=== PATIENT | female | born 1975 | race Hispanic/Latino ===

== ENCOUNTER 2017-11-23 22:40 | Emergency (ER) | payer OTHER, MEDICARE | END 2017-11-23 23:40 | disposition home or self-care (01) | LOC: EDH 22:40 | DX: S90.822A Blister (nonthermal), left foot, initial encounter (principal); X58.XXXA Exposure to other specified factors, initial encounter; Y93.89 Activity, other specified; Y92.89 Other specified places as the place of occurrence of the external cause; Y99.8 Other external cause status | CPT/HCPCS: 99282 ==

== ENCOUNTER → 2020-06-14 | Outpatient (CLI) | payer OTHER, MEDICARE | END | disposition home or self-care (01) | LOC: RAH 15:13 | PROVIDERS: ATTEND Internal Medicine | DX: I82.561 Chronic embolism and thrombosis of right calf muscular vein (principal) | CPT/HCPCS: 93970 ==

== ENCOUNTER → 2021-10-24 | Outpatient (CLI) | payer OTHER, MEDICARE | END | disposition home or self-care (01) | LOC: RAH 09:05 | PROVIDERS: ATTEND Internal Medicine | DX: M25.462 Effusion, left knee (principal); M25.562 Pain in left knee | CPT/HCPCS: 73560 ==

== ENCOUNTER → 2022-07-07 | Outpatient (CLI) | payer OTHER, MEDICARE | END | disposition home or self-care (01) | LOC: RAH 12:25 | PROVIDERS: ATTEND Internal Medicine | DX: M54.12 Radiculopathy, cervical region (principal); M25.78 Osteophyte, vertebrae | CPT/HCPCS: 72040 ==

== ENCOUNTER 2022-07-25 19:52 | Emergency (ER) | payer OTHER, MEDICARE ==
[~2022-07-25] VITALS: Ht 152.4 cm; Wt 62.6 kg
[2022-07-25 20:14] VITALS: BP 133/73
[2022-07-25] MEDS ORDERED: FLUORESCEIN SODIUM 1 STRIP STRIP ONE (23:07)
[2022-07-26] MEDS ORDERED: ERYTHROMYCIN BASE 0.5% OPHTH OINT 1 GM TUBE OU SCH
== END 2022-07-26 00:12 | disposition home or self-care (01) ==
LOC: EDH 19:52
DX: S05.02XA Injury of conjunctiva and corneal abrasion without foreign body, left eye, initial encounter (principal); Z98.890 Other specified postprocedural states; X58.XXXA Exposure to other specified factors, initial encounter; Y93.89 Activity, other specified; Y92.89 Other specified places as the place of occurrence of the external cause; Y99.8 Other external cause status

== ENCOUNTER 2023-03-26 15:12 | Emergency (ER) | payer OTHER, MEDICARE ==
[~2023-03-26] VITALS: Ht 152.4 cm; Wt 61.2 kg
[2023-03-26] MEDS ORDERED: MAG/ALUM/SIMETH 30 ML UDCUP PO ONE (17:30)
[2023-03-26] MEDS ORDERED: LIDOCAINE HCL 2% VISCOUS 15 ML UDCUP PO ONE (17:30)
[2023-03-26] MEDS ORDERED: FAMOTIDINE 20MG VIAL IV ONE (17:30)
[2023-03-26] MEDS ORDERED: DICYCLOMINE HCL 10 MG/5 ML ML PO ONE (17:30)
[2023-03-26] MEDS ORDERED: KETOROLAC 60 MG VIAL (30MG/ML) IM ONE (17:30)
[2023-03-26] MEDS ORDERED: ONDANSETRON 4MG TABLET PO ONE (17:30)
[2023-03-26 17:32] LABS: APPEARANCE,URINE CLEAR (CLEAR); BILIRUBIN,URINE NEGATIVE (NEGATIVE); COLOR,URINE LIGHT-YELLOW (YELLOW); GLUCOSE, URINE (UA) NEGATIVE (NEGATIVE); KETONES,URINE 40 mg/dL (NEGATIVE); LEUKOCYTE ESTERASE ,URINE NEGATIVE Leu/uL (NEGATIVE); NITRATE,URINE NEGATIVE (NEGATIVE); OCCULT BLOOD,URINE NEGATIVE (NEGATIVE); PH,URINE 8.5 (5.0-8.0); PROTEIN,URINE 30 mg/dL (NEGATIVE); UROBILINOGEN,URINE 0.2 mg/dL (0.2-1.0)
[2023-03-26 17:33] LABS: ADD UA MICROSCOPIC YES
[2023-03-26 17:38] LABS: HCG,QUALITATIVE URINE NEGATIVE (NEGATIVE); MUCUS,URINE RARE LPF (None Seen); SQUAMOUS EPITHELIAL CELL,UR RARE /HPF (0-2)
[2023-03-26] MEDS ORDERED: FAMO20TA8 PO (18:36)
[2023-03-26 18:45] LABS: BASOPHILS # (AUTO) 0.05 K/uL (0.00-0.20); BASOPHILS % (AUTO) 0.4 % (0.0-5.0); HEMATOCRIT 39.4 % (36-48); IMMATURE GRANULOCYTE ABSOLUTE 0.04 K/uL (0-1); LYMPHOCYTES # (AUTO) 0.8 K/uL (1.0-4.8); LYMPHOCYTES % (AUTO) 6.4 % (21.0-51.0); MEAN CORPUSCULAR HEMOGLOBIN 29.4 pg (27.0-33.0); MEAN CORPUSCULAR VOLUME 92.1 fL (79-99); MONOCYTES # (AUTO) 0.7 K/uL (0.1-1.0); MONOCYTES % (AUTO) 6.2 % (3.0-13.0); NEUTROPHILS # (AUTO) 10.3 K/uL (1.8-7.7); NEUTROPHILS % (AUTO) 86.7 % (40.0-77.0); PLATELET COUNT (AUTO) 250 K/uL (130-400); RED BLOOD CELL COUNT(AUTO) 4.28 MIL/uL (4.00-5.50); RED CELL DISTRIBUTION WIDTH 14.6 % (11.0-15.5); WHITE BLOOD COUNT (AUTO) 11.9 K/uL (4.8-10.8)
[2023-03-26 18:52] LABS: CREATININE 0.7 mg/dL (0.5-1.5); POTASSIUM 3.6 mmol/L (3.5-5.1)
[2023-03-26 18:57] LABS: ALBUMIN 3.7 g/dL (3.5-5.0); TOTAL PROTEIN, SERUM 7.9 g/dL (6.0-8.3)
[2023-03-26 19:33] VITALS: BP 125/78; PULSE 80; RESP 16; O2SAT 98
== END 2023-03-26 19:39 | disposition home or self-care (01) ==
LOC: EDH 15:12
DX: K29.70 Gastritis, unspecified, without bleeding (principal)
CPT/HCPCS: 99284; 96374; 80053; 83690; 85025; 81001; 81025; 36415; 96372; Q0162; J3490; J1885

== ENCOUNTER → 2023-04-30 | Outpatient (CLI) | payer OTHER, MEDICARE ==
[~2023-04-30] MED LIST: FAMO20TA8 PO
== END | disposition home or self-care (01) ==
LOC: RAH 08:39
PROVIDERS: ATTEND Obstetrics & Gynecology
DX: Z12.31 Encounter for screening mammogram for malignant neoplasm of breast (principal); R92.333 Mammographic heterogeneous density, bilateral breasts
CPT/HCPCS: 77063; 77067

== ENCOUNTER → 2023-05-12 | Outpatient (CLI) | payer OTHER, MEDICARE | END | disposition home or self-care (01) | LOC: RAH 11:17 | DX: Z01.818 Encounter for other preprocedural examination (principal) | CPT/HCPCS: 71046 ==

== ENCOUNTER 2023-06-29 07:22 | Observation (INO) | payer OTHER, MEDICARE ==
[2023-06-25 12:59] LABS: BASOPHILS # (AUTO) 0.05 K/uL (0.00-0.20); EOSINOPHILS # (AUTO) 0.08 K/uL (0.00-0.70); EOSINOPHILS % (AUTO) 1.6 % (0.0-8.0); HEMATOCRIT 35.5 % (36-48); IMMATURE GRANULOCYTE ABSOLUTE 0.01 K/uL (0-1); LYMPHOCYTES # (AUTO) 1.4 K/uL (1.0-4.8); LYMPHOCYTES % (AUTO) 26.5 % (21.0-51.0); MEAN CORPUSCULAR HEMOGLOBIN 30.4 pg (27.0-33.0); MEAN CORPUSCULAR HGB CONC 31.5 g/dL (32.0-36.0); MEAN CORPUSCULAR VOLUME 96.5 fL (79-99); MONOCYTES # (AUTO) 0.4 K/uL (0.1-1.0); MONOCYTES % (AUTO) 8.2 % (3.0-13.0); NEUTROPHILS # (AUTO) 3.2 K/uL (1.8-7.7); NEUTROPHILS % (AUTO) 62.5 % (40.0-77.0); PLATELET COUNT (AUTO) 194 K/uL (130-400); RED BLOOD CELL COUNT(AUTO) 3.68 MIL/uL (4.00-5.50); RED CELL DISTRIBUTION WIDTH 13.6 % (11.0-15.5); WHITE BLOOD COUNT (AUTO) 5.1 K/uL (4.8-10.8)
[2023-06-25 13:08] VITALS: BP 116/69; PULSE 50; RESP 18
[2023-06-25 13:11] LABS: CREATININE 0.6 mg/dL (0.5-1.5)
[~2023-06-29] VITALS: Ht 152.4 cm; Wt 64.1 kg
[2023-06-29] VITALS (28 sets, daily range): BP systolic 104–175; BP diastolic 54–93; PULSE 57–79; RESP 12–18; O2SAT 100
[~2023-06-29 07:22] MED LIST changes: +BUPR-49 PO; -FAMO20TA8 PO; +HYDR-3422 PO; +LURA40TA2 PO; +WOMEN'S MULTIVITAMIN PO
[2023-06-29] MEDS: LACTATED RINGERS 1000ML 1,000 ML IV ONE (08:25)
[2023-06-29] MEDS: CEFAZOLIN SODIUM 2 GM VIAL ONE (08:25)
[2023-06-29] MEDS: HYDROMORPHONE 1 MG INJ ONE (10:09)
[2023-06-29] MEDS ORDERED: MIDAZOLAM HCL 1 MG/ML 2ML VIAL ONE (10:13)
[2023-06-29] MEDS ORDERED: GLYCOPYRROLATE 0.2 MG/ML 5 ML VIAL ONE (10:15)
[2023-06-29] MEDS ORDERED: LIDOCAINE PF 100MG/5ML (2%) SYRINGE 5ML ONE (10:15)
[2023-06-29] MEDS ORDERED: ROCURONIUM BROMIDE 10MG/1ML 5ML VL ONE (10:16)
[2023-06-29] MEDS ORDERED: PROPOFOL 10 MG/ML 20ML VIAL IV ONE (10:16)
[2023-06-29] MEDS ORDERED: FENTANYL CITRATE PF 50 MCG/1 ML 2ML VIAL ONE (10:16)
[2023-06-29] MEDS ORDERED: ONDANSETRON 4MG INJ ONE (10:49)
[2023-06-29] MEDS ORDERED: NEOSTIGMINE METHYLSULFATE 1MG/ML IV ONE (11:06)
[2023-06-29] MEDS ORDERED: HYDR25CA PO (11:10)
[2023-06-29] MEDS: FENTANYL CITRATE PF 50 MCG/1 ML 2ML VIAL ONE (13:33)
[2023-06-29] MEDS: KETOROLAC 15MG/ML VIAL (15MG/ML) ONE (15:40)
[2023-06-29] MEDS: KETOROLAC 15MG/ML VIAL (15MG/ML) IV ONE (15:40)
[2023-06-29] MEDS: CEFAZOLIN SODIUM 2 GM VIAL IVPB SCH (18:10)
[2023-06-29] MEDS: LACTATED RINGERS 1000ML 1,000 ML IV SCH (18:11)
[2023-06-29] MEDS: ACETAMINOPHEN WITH CODEINE 1 TAB TAB PO PRN (18:14)
[2023-06-29] MEDS: MORPHINE 4 MG SYG IVP PRN (18:54)
[2023-06-29] MEDS: KETOROLAC 15MG/ML VIAL (15MG/ML) IM SCH (22:59)
[2023-06-30] VITALS (7 sets, daily range): BP systolic 113–126; BP diastolic 68–88; PULSE 62–118; RESP 16–18; O2SAT 95–100
[2023-06-30 05:24] LABS: HEMATOCRIT 30.3 % (36-48); MEAN CORPUSCULAR HEMOGLOBIN 30.5 pg (27.0-33.0); MEAN CORPUSCULAR HGB CONC 32.7 g/dL (32.0-36.0); MEAN CORPUSCULAR VOLUME 93.2 fL (79-99); RED BLOOD CELL COUNT(AUTO) 3.25 MIL/uL (4.00-5.50); RED CELL DISTRIBUTION WIDTH 13.5 % (11.0-15.5)
[2023-06-30 05:46] LABS: CREATININE 0.8 mg/dL (0.5-1.5); POTASSIUM 3.7 mmol/L (3.5-5.1)
[2023-06-30] MEDS: ONDANSETRON 4MG INJ IVP PRN (11:46)
[2023-06-30] MEDS: FAMOTIDINE 20MG VIAL IV SCH (21:05)
[2023-06-30] MEDS: KETOROLAC 15MG/ML VIAL (15MG/ML) IV SCH (21:06)
[2023-07-01] VITALS: BP 128/76; PULSE 110; RESP 16
[2023-07-01 04:00] VITALS: BP 108/74; PULSE 105; RESP 18
[2023-07-01 08:00] VITALS: O2SAT 100
[2023-07-01 08:27] VITALS: BP 97/73; PULSE 100; RESP 18
[2023-07-01] MEDS: ENOXAPARIN SODIUM 30 MG/0.3 ML SQ SCH (09:15)
[2023-07-01 11:52] VITALS: BP 111/74; PULSE 103; RESP 20
[2023-07-01 18:09] VITALS: BP 98/70; PULSE 94; RESP 20
== END 2023-07-01 18:45 | disposition home or self-care (01) ==
LOC: DAH 07:22 → DAHIP 07:23 → 3CH 14:15
PROVIDERS: ADMIT Surgery; ATTEND Surgery
DX: M79.3 Panniculitis, unspecified (principal); Z20.822 Contact with and (suspected) exposure to COVID-19; G47.00 Insomnia, unspecified; F17.200 Nicotine dependence, unspecified, uncomplicated; L98.7 Excessive and redundant skin and subcutaneous tissue; F31.9 Bipolar disorder, unspecified; Z98.84 Bariatric surgery status; Z86.718 Personal history of other venous thrombosis and embolism
CPT/HCPCS: 80048 ×2; 84703; 85025; 36415 ×2; 15830; 96372 ×4; 96365; 96375 ×2; 81025; 96376 ×2; 96366; 85027; 87426; 97161; 97116; A6260; G0378 ×55; A4663; A4452; J7120; J3010 ×2; J1170; J3490 ×2; J2001; J2250; J2704; J2405 ×2; J2270 ×3; J2710; J1885 ×8; J0690 ×3; A4649 ×2; A4215; A4223; A4222; A4221; A4600; J1650

== ENCOUNTER → 2023-12-16 | Outpatient (CLI) | payer OTHER, MEDICARE ==
[~2023-12-16] MED LIST changes: -HYDR-3422 PO; +HYDR25CA PO
== END | disposition home or self-care (01) ==
LOC: RAH 09:19
PROVIDERS: ATTEND Internal Medicine
DX: N64.4 Mastodynia (principal); R92.333 Mammographic heterogeneous density, bilateral breasts; R59.0 Localized enlarged lymph nodes; L03.90 Cellulitis, unspecified
CPT/HCPCS: 77066

== ENCOUNTER 2024-02-15 15:56 | Emergency (ER) | payer OTHER, MEDICARE ==
[~2024-02-15] VITALS: Ht 152.4 cm; Wt 68.0 kg
[2024-02-15 17:47] LABS: BASOPHILS # (AUTO) 0.05 K/uL (0.00-0.20); BASOPHILS % (AUTO) 0.9 % (0.0-5.0); EOSINOPHILS # (AUTO) 0.08 K/uL (0.00-0.70); EOSINOPHILS % (AUTO) 1.4 % (0.0-8.0); HEMATOCRIT 42.5 % (36-48); IMMATURE GRANULOCYTE ABSOLUTE 0.01 K/uL (0-1); LYMPHOCYTES # (AUTO) 1.2 K/uL (1.0-4.8); LYMPHOCYTES % (AUTO) 21.7 % (21.0-51.0); MEAN CORPUSCULAR HEMOGLOBIN 29.5 pg (27.0-33.0); MEAN CORPUSCULAR VOLUME 92.2 fL (79-99); MONOCYTES # (AUTO) 0.4 K/uL (0.1-1.0); MONOCYTES % (AUTO) 7.2 % (3.0-13.0); NEUTROPHILS # (AUTO) 3.9 K/uL (1.8-7.7); NEUTROPHILS % (AUTO) 68.6 % (40.0-77.0); PLATELET COUNT (AUTO) 263 K/uL (130-400); RED BLOOD CELL COUNT(AUTO) 4.61 MIL/uL (4.00-5.50); RED CELL DISTRIBUTION WIDTH 13.1 % (11.0-15.5); WHITE BLOOD COUNT (AUTO) 5.7 K/uL (4.8-10.8)
[2024-02-15 17:59] LABS: INR 0.95 (0.85-1.15); PROTHROMBIN TIME 10.3 SEC (9.6-11.6)
[2024-02-15 18:00] LABS: PARTIAL THROMBOPLASTIN TIME 26.6 SEC (26.3-35.5)
[2024-02-15 18:14] LABS: CREATININE 0.8 mg/dL (0.5-1.0); POTASSIUM 3.8 mmol/L (3.5-5.1)
[2024-02-15 18:30] LABS: BAND NEUTROPHILS % (MANUAL) 4 % (0-2); LYMPHOCYTES % (MANUAL) 16 % (22-44); MAN.DIFF COMMENT-IMPRESSION MANUAL DIFFERENTIAL; MONOCYTES % (MANUAL) 4 % (2-9); REACTIVE LYMPHOCYTES 11 % (0-0); SEGMENTED NEUTROPHILS % 65 % (40-70); TOTAL CELLS COUNTED 100
[2024-02-15 19:22] VITALS: BP 127/65; PULSE 71; RESP 16; TEMP 98.3; O2SAT 98
== END 2024-02-15 19:40 | disposition home or self-care (01) ==
LOC: EDH 15:56
DX: M79.605 Pain in left leg (principal); I48.91 Unspecified atrial fibrillation; F31.9 Bipolar disorder, unspecified; Z79.899 Other long term (current) drug therapy; Z86.718 Personal history of other venous thrombosis and embolism; Z98.890 Other specified postprocedural states
CPT/HCPCS: 36415; 80048; 84703; 85025; 85610; 85730; 93971

== ENCOUNTER → 2024-03-30 | Outpatient (CLI) | payer OTHER, MEDICARE | END | disposition home or self-care (01) | LOC: RAH 10:00 | PROVIDERS: ATTEND Internal Medicine | DX: I82.501 Chronic embolism and thrombosis of unspecified deep veins of right lower extremity (principal); M79.605 Pain in left leg; Z79.01 Long term (current) use of anticoagulants | CPT/HCPCS: 93971 ==

== ENCOUNTER → 2024-06-22 | Outpatient (CLI) | payer OTHER, MEDICARE ==
[2024-06-22 16:24] LABS: BASOPHILS # (AUTO) 0.07 K/uL (0.00-0.20); BASOPHILS % (AUTO) 1.1 % (0.0-5.0); EOSINOPHILS # (AUTO) 0.06 K/uL (0.00-0.70); EOSINOPHILS % (AUTO) 0.9 % (0.0-8.0); HEMATOCRIT 42.3 % (36-48); IMMATURE GRANULOCYTE ABSOLUTE 0.02 K/uL (0-1); LYMPHOCYTES # (AUTO) 1.7 K/uL (1.0-4.8); LYMPHOCYTES % (AUTO) 26.6 % (21.0-51.0); MEAN CORPUSCULAR HGB CONC 31.7 g/dL (32.0-36.0); MEAN CORPUSCULAR VOLUME 97.9 fL (79-99); MONOCYTES # (AUTO) 0.5 K/uL (0.1-1.0); MONOCYTES % (AUTO) 7.9 % (3.0-13.0); NEUTROPHILS # (AUTO) 4.1 K/uL (1.8-7.7); NEUTROPHILS % (AUTO) 63.2 % (40.0-77.0); PLATELET COUNT (AUTO) 236 K/uL (130-400); RED BLOOD CELL COUNT(AUTO) 4.32 MIL/uL (4.00-5.50); RED CELL DISTRIBUTION WIDTH 13.2 % (11.0-15.5); WHITE BLOOD COUNT (AUTO) 6.5 K/uL (4.8-10.8)
[2024-06-22 17:09] LABS: ALBUMIN 3.5 g/dL (3.5-5.0); BILIRUBIN,TOTAL 0.8 mg/dL (0.2-1.0); CREATININE 0.5 mg/dL (0.5-1.0); POTASSIUM 4.6 mmol/L (3.5-5.1); TOTAL PROTEIN, SERUM 6.9 g/dL (6.0-8.3)
== END | disposition home or self-care (01) ==
LOC: LAB 12:55
PROVIDERS: ATTEND Internal Medicine Cardiovascular Disease
DX: R55 Syncope and collapse (principal); Z82.3 Family history of stroke; Z82.49 Family history of ischemic heart disease and other diseases of the circulatory system; Z79.899 Other long term (current) drug therapy
CPT/HCPCS: 36415; 80053; 80061; 85025

== ENCOUNTER → 2024-12-16 | Outpatient (CLI) | payer OTHER, MEDICARE | LOC: RAH 09:50 | PROVIDERS: ATTEND Nurse Practitioner Family | DX: Z12.31 Encounter for screening mammogram for malignant neoplasm of breast (principal) | CPT/HCPCS: 77067 ==

== ENCOUNTER → 2024-12-23 | Outpatient (CLI) | payer OTHER, MEDICARE ==
--- NOTE | 2024-12-24 03:32 | HMCIMG ---
CR Right Shoulder, 2 views. CLINICAL HISTORY: Pain. COMPARISON: None provided. FINDINGS: No acute fracture or aggressive appearing osseous lesion. Mild acromioclavicular arthropathy. Unremarkable glenohumeral joint. The soft tissues are unremarkable. IMPRESSION: No acute bony abnormality is evident. Mild acromioclavicular arthropathy. /[place]
== END | disposition home or self-care (01) ==
LOC: RAH 10:41
PROVIDERS: ATTEND Nurse Practitioner Family
DX: M19.011 Primary osteoarthritis, right shoulder (principal); M25.511 Pain in right shoulder
CPT/HCPCS: 73030